=== PATIENT | female | born 1960 | race Caucasian/White ===

== ENCOUNTER 2019-02-10 19:47 | Emergency (ER) | payer OTHER ==
[~2019-02-10] VITALS: Ht 157.5 cm; Wt 63.5 kg
[~2019-02-10 19:47] MED LIST: ALBU90OI6 INH; ALPR.5 PO; ALPR1 PO; ARIP10 PO; AZIT250 PO; CETI10 PO; CLIN300 PO; CLON.1 PO; CLON1 PO; CODGUAEL PO; CYCL10 PO; DESV50 PO; DIAZ5 PO; DIPATR PO; DOXY100 PO; DULO60; DULO60 PO; FAMO20 PO; FLUO20 PO; HYDACE10 PO; HYDACE10B PO; HYDACE5 PO; HYDACE5325 PO; HYDHCL25 PO; KETO10 PO; LAMO100 PO; LEVSOD75 PO; LORA1 PO; NITR100CA PO; OMEP20ER PO; ONDA4 PO; PERM5TC TOP; PIRO20 PO; PROM25 PO; RXCLIN PO; RXHYDACE PO; SUCR1 PO; TOPI100; TRAM50 PO; VIBRYD PO
[2019-02-10] MEDS ORDERED: Ventolin/Prove6.7 GM INH (20:05)
[2019-02-10] MEDS ORDERED: INCRUSE ELLI62.5 MCG INH ×2 (20:05→21:33)
[2019-02-10 21:03] LABS: BASOPHILS ABSOLUTE AUTO 0.09 K/mm3 (0.00-0.23); BASOPHILS PERCENT AUTO 1 % (0-2); EOSINOPHILS ABSOLUTE AUTO 0.57 K/mm3 (0.00-0.68); EOSINOPHILS PERCENT AUTO 7 % (0-6); Hematocrit 42.6 % (33.0-51.0); Hemoglobin 14.4 g/dL (11.5-16.0); IMMATURE GRAN ABSOLUTE AUTO 0.02 K/mm3 (0.00-0.10); IMMATURE GRAN PERCENT AUTO 0 % (0-1); LYMPHOCYTES ABSOLUTE AUTO 2.64 K/mm3 (0.84-5.20); LYMPHOCYTES PERCENT AUTO 34 % (21-46); MONOCYTES ABSOLUTE AUTO 0.58 K/mm3 (0.16-1.47); MONOCYTES PERCENT AUTO 7 % (4-13); Mean Corpuscular HGB 30.4 pg (26.0-34.0); Mean Corpuscular HGB Conc 33.8 g/dL (31.5-36.5); Mean Corpuscular Volume 90 fL (80-100); NEUTROPHILS ABSOLUTE AUTO 3.92 K/mm3 (1.96-9.15); NEUTROPHILS PERCENT AUTO 50 % (41-73); Platelet Count 313 K/mm3 (150-400); RDW Coefficient Variation 12.8 % (11.7-14.2); RDW Standard Deviation 42.5 fL (35.1-46.3); Red Blood Cell Count 4.73 M/mm3 (3.80-5.20); White Blood Cell Count 7.82 K/mm3 (4.00-11.30)
[2019-02-10 21:24] LABS: Alanine Aminotransfer (ALT/SGP 22 U/L (12-78); Albumin, Blood 3.7 g/dL (3.4-5.0); Albumin/Globulin Ratio 0.8 (0.8-1.8); Alk Phos 111 U/L (50-136); Anion Gap 6 mmol/L (6-16); Aspartate Aminotrans (AST/SGOT 17 U/L (12-37); Bilirubin, Total 0.2 mg/dL (0.1-1.0); Blood Urea Nitrogen 22 mg/dL (8-24); Bun/Creatinine Ratio 30.2 (12.0-20.0); CO2, Blood 26 mmol/L (21-32); Calcium, Blood 8.8 mg/dL (8.5-10.1); Chloride, Blood 107 mmol/L (98-108); Creatinine, Blood 0.73 mg/dL (0.40-1.00); Globulin, Blood 4.4 g/dL (2.2-4.0); Glomerular Filtration Rate >60 (60-); Glucose, Blood 100 mg/dL (70-99); Potassium, Blood 4.5 mmol/L (3.5-5.5); Sodium, Blood 139 mmol/L (136-145); Total Protein, Blood 8.1 g/dL (6.4-8.2); Troponin I <0.015 ng/mL (0.000-0.040)
[2019-02-10] MEDS ORDERED: Prednisone20 MG PO (21:33)
== END 2019-02-10 21:40 | disposition home or self-care (01) ==
LOC: ER 19:47
PROVIDERS: Emergency Medicine
DX: J44.1 Chronic obstructive pulmonary disease with (acute) exacerbation (principal); F17.210 Nicotine dependence, cigarettes, uncomplicated; Z88.2 Allergy status to sulfonamides; Z88.8 Allergy status to other drugs, medicaments and biological substances; Z79.899 Other long term (current) drug therapy
CPT/HCPCS: 36415; 71045; 80053; 83880; 84484; 85025; 93005; 93010; 94640; 94644; 96374; 99285-25; J2930

== ENCOUNTER → 2019-09-06 | Outpatient (CLI) | payer OTHER ==
[~2019-09-06] MED LIST changes: +INCRUSE ELLI62.5 MCG INH; +Prednisone20 MG PO; +Ventolin/Prove6.7 GM INH
== END | disposition home or self-care (01) ==
LOC: LAB EV 19:06 → LAB SHORT 19:06
DX: N39.0 Urinary tract infection, site not specified (principal); Z20.9 Contact with and (suspected) exposure to unspecified communicable disease
CPT/HCPCS: 87077; 87086; 87147; 87186

== ENCOUNTER → 2021-11-22 | Outpatient (CLI) | payer OTHER ==
[~2021-11-22] MED LIST changes: +ALBU4 PO; +BUPRENORPHIN-N1 EAC1 SL; +Budeprion Xl300 MG PO; +DOCUZEN 8.6-501 EACH PO; +DOXE50 PO; +HYDPAM50 PO; +MAVYRET 100-401 EAC1 PO; +Ondansetron Odt8 MG MM; +PEPCID20 MG PO; +PREG75 PO; +PROM25; +Prevacid Soluta30 MG PO; +Prilosec Otc20 MG PO; +SUBOXONE 12 MG1 EACH SL; +VIIBRYD1 EAC2
[2021-11-23 15:08] LABS: HPV 16 Negative (Negative); HPV 18 Negative (Negative); HPV OTHER HR TYPES Negative (Negative)
== END | disposition home or self-care (01) ==
LOC: LAB SHORT 08:40 → LAB 08:40
PROVIDERS: Registered Nurse
DX: Z12.4 Encounter for screening for malignant neoplasm of cervix (principal)
CPT/HCPCS: 87624; G0123

== ENCOUNTER 2022-05-12 17:00 | Inpatient (IN) | payer OTHER ==
[~2022-05-12] VITALS: Ht 157.5 cm; Wt 65.8 kg
[2022-05-12 19:26] LABS: BASOPHILS ABSOLUTE AUTO 0.04 K/mm3 (0.00-0.23); BASOPHILS PERCENT AUTO 0 % (0-2); EOSINOPHILS PERCENT AUTO 1 % (0-6); Hematocrit 34.3 % (33.0-51.0); Hemoglobin 11.4 g/dL (11.5-16.0); IMMATURE GRAN ABSOLUTE AUTO 0.02 K/mm3 (0.00-0.10); IMMATURE GRAN PERCENT AUTO 0 % (0-1); LYMPHOCYTES ABSOLUTE AUTO 1.07 K/mm3 (0.84-5.20); LYMPHOCYTES PERCENT AUTO 11 % (21-46); MONOCYTES ABSOLUTE AUTO 0.48 K/mm3 (0.16-1.47); MONOCYTES PERCENT AUTO 5 % (4-13); Mean Corpuscular HGB 27.9 pg (26.0-34.0); Mean Corpuscular HGB Conc 33.2 g/dL (31.5-36.5); Mean Corpuscular Volume 84 fL (80-100); Mean Platelet Volume 11.2 fL (9.1-12.4); NEUTROPHILS ABSOLUTE AUTO 8.06 K/mm3 (1.96-9.15); NEUTROPHILS PERCENT AUTO 83 % (41-73); Platelet Count 205 K/mm3 (150-400); RDW Coefficient Variation 15.2 % (11.7-14.2); RDW Standard Deviation 46.9 fL (35.1-46.3); Red Blood Cell Count 4.08 M/mm3 (3.80-5.20); White Blood Cell Count 9.77 K/mm3 (4.00-11.30)
[2022-05-12 19:46] LABS: Albumin, Blood 3.4 g/dL (3.4-5.0); Albumin/Globulin Ratio 0.8 (0.8-1.8); Bilirubin, Total 0.2 mg/dL (0.1-1.0); Bun/Creatinine Ratio 19.4 (12.0-20.0); Calcium, Blood 8.3 mg/dL (8.5-10.1); Creatinine, Blood 0.72 mg/dL (0.40-1.00); Globulin, Blood 4.2 g/dL (2.2-4.0); Potassium, Blood 3.9 mmol/L (3.5-5.5); Total Protein, Blood 7.6 g/dL (6.4-8.2)
[2022-05-13 05:04] LABS: BASOPHILS ABSOLUTE AUTO 0.04 K/mm3 (0.00-0.23); BASOPHILS PERCENT AUTO 1 % (0-2); EOSINOPHILS ABSOLUTE AUTO 0.28 K/mm3 (0.00-0.68); EOSINOPHILS PERCENT AUTO 4 % (0-6); Hematocrit 32.7 % (33.0-51.0); Hemoglobin 10.9 g/dL (11.5-16.0); IMMATURE GRAN ABSOLUTE AUTO 0.02 K/mm3 (0.00-0.10); IMMATURE GRAN PERCENT AUTO 0 % (0-1); LYMPHOCYTES PERCENT AUTO 23 % (21-46); MONOCYTES ABSOLUTE AUTO 0.36 K/mm3 (0.16-1.47); MONOCYTES PERCENT AUTO 6 % (4-13); Mean Corpuscular HGB 28.1 pg (26.0-34.0); Mean Corpuscular HGB Conc 33.3 g/dL (31.5-36.5); Mean Corpuscular Volume 84 fL (80-100); Mean Platelet Volume 11.7 fL (9.1-12.4); NEUTROPHILS ABSOLUTE AUTO 4.35 K/mm3 (1.96-9.15); NEUTROPHILS PERCENT AUTO 66 % (41-73); Platelet Count 178 K/mm3 (150-400); RDW Coefficient Variation 15.4 % (11.7-14.2); RDW Standard Deviation 47.4 fL (35.1-46.3); Red Blood Cell Count 3.88 M/mm3 (3.80-5.20); White Blood Cell Count 6.55 K/mm3 (4.00-11.30)
[2022-05-13 05:24] LABS: Albumin/Globulin Ratio 0.8 (0.8-1.8); Bilirubin, Total 0.5 mg/dL (0.1-1.0); Calcium, Blood 8.3 mg/dL (8.5-10.1); Creatinine, Blood 0.62 mg/dL (0.40-1.00); Globulin, Blood 3.8 g/dL (2.2-4.0); Potassium, Blood 3.6 mmol/L (3.5-5.5); Total Protein, Blood 6.8 g/dL (6.4-8.2)
--- NOTE | 2022-05-13 06:23 | NUR ---
SHIFT SUMMARY PT ADMITTED FROM THE ER FOR A LEFT HIP FX, PT HAS BEEN COOPERATIVE WITH CARE, VSS, TEMP IS 101.1, DB&C ENC, TYLENOL GIVEN, PT IS ON RA, SPO2 >92%, NPO SINCE MIDNIGHT, 25 MCG IV FENTANYL GIVEN FOR PAIN, DENIES N/T TO L.LEG, VOIDING WNL, RESTING QUIETLY AT THIS TIME, ORTHO CONSULT CALLED TO , AZUL & REPORT TO DAY RN, CALL LIGHT IN REACH.
[2022-05-13 12:53] LABS: Appearance, Urine Clear (Clear); Bilirubin, Urine Neg (Neg); Blood, Urine Neg (Neg); Color, Urine Yellow (P-Yellow); Glucose Qualitative, Urine Neg (Neg); Ketones, Urine Neg (Neg); Leukocyte Esterase, Urine Neg (Neg); Nitrite, Urine Neg (Neg); Protein, Urine Neg (Neg); Urobilinogen, Urine NORM (Normal)
--- NOTE | 2022-05-13 15:42 | NUR ---
SHIFT SUMMARY: LEFT HIP FRACTURE PATIENT IS A&OX4. VS ARE WNL AND IS ON RA THOUGH HAS INTERMITTENT EXPIRATORY WHEEZES. PATIENT WILL REQUEST FOR RT TREATMENT APPROPRIATELY AND MANAGES THE WHEEZING. PAIN IS MANAGED WITH IV FENT. AND PO TYLENOL. SHE IS TOLERATING PO INTAKE. LEFT HIP IS SWOLLEN AND EXTERNALLY ROTATED BUT DENIES NUMBNESS AND TINGLING. CAN MOVE ALL EXTREMITIES WHEN ASKED. PEARSON IS PATENT AND DRAINING YELLOW URINE. CALLS APPROPRIATELY. CALL LIGHT WITHIN REACH. THE PLAN IS TO BE NPO AT MIDNIGHT TONIGHT AND HAVE SURGERY WITH DR. BURKETT TOMORROW.
--- NOTE | 2022-05-14 02:58 | NUR ---
ASSUMED CARE OF PT 0130. PT PREOP FOR AM- PT REPORTS HAS NOT HAD MENSES FOR 6-7 YRS. WILL NOT BE DOING U PREG TEST PREOP.
--- NOTE | 2022-05-14 10:20 | NUR ---
05/14/22 1020 Kimberly French PATIENT ARRIVED TO OR WITH PEARSON CATHETER IN PLACE DRAINING YELLOW URINE.
--- NOTE | 2022-05-14 18:45 | NUR ---
SHIFT SUMMARY S/P L GAMMA NAIL, AQUACEL CDI, PHYSICAL THERAPY EVAL'D. AMB SBA FWW & GB, UP TO CHAIR. PEARSON PATENT DRAINING YELLOW URINE. FRANKI PO. PAIN MANAGED WITH NORCO. WILL REPORT TO ONCOMING NOC RN.
[2022-05-15 05:07] LABS: Albumin, Blood 2.4 g/dL (3.4-5.0); Anion Gap 8 mmol/L (6-16); Blood Urea Nitrogen 16 mg/dL (8-24); Bun/Creatinine Ratio 33.8 (12.0-20.0); CO2, Blood 21 mmol/L (21-32); Calcium, Blood 7.7 mg/dL (8.5-10.1); Chloride, Blood 109 mmol/L (98-108); Creatinine, Blood 0.47 mg/dL (0.40-1.00); Glomerular Filtration Rate 109 (60-); Glucose, Blood 122 mg/dL (70-99); Phosphorus, Blood 2.9 mg/dL (2.5-4.9); Potassium, Blood 4.9 mmol/L (3.5-5.5); Sodium, Blood 138 mmol/L (136-145)
[2022-05-15 09:35] LABS: Hematocrit 31.6 % (33.0-51.0); Hemoglobin 10.6 g/dL (11.5-16.0); Mean Corpuscular HGB 28.6 pg (26.0-34.0); Mean Corpuscular HGB Conc 33.5 g/dL (31.5-36.5); Mean Corpuscular Volume 85 fL (80-100); Mean Platelet Volume 11.7 fL (9.1-12.4); Platelet Count 177 K/mm3 (150-400); RDW Coefficient Variation 15.2 % (11.7-14.2); White Blood Cell Count 9.35 K/mm3 (4.00-11.30)
--- NOTE | 2022-05-15 17:09 | NUR ---
SHIFT SUMMARY POD1 L GAMMA NAIL, AQUACEL DRESSING CHANGED TODAY. PAIN MANAGED WITH SUB, TYLENOL AND TORADOL. AMB SBA FWW & GB, TO BRP AND IN HALLWAY, UP TO CHAIR T/O SHIFT. VOIDING. FRANKI PO. DRESSED/ADLS SELF. SISTER AT BEDSIDE. WILL REPORT TO ONCOMING NOC RN.
[2022-05-16] MEDS ORDERED: Acetaminophen650 M1 PO (10:56)
[2022-05-16] MEDS ORDERED: ENOX40I SC (10:57)
[2022-05-16] MEDS ORDERED: MIRALAX17 GM PO (10:58)
[2022-05-16] MEDS ORDERED: IBUP400 PO (10:59)
--- NOTE | 2022-05-16 17:54 | NUR ---
SHIFT SUMMARY POD 2 GAMMA NAIL TO LEFT HIP, X1 AQUACEL IN PLACE, C/D/I. MINIMAL PAIN THROUGHOUT SHIFT, MANAGED PER EMAR. WORKED WITH THERAPY THIS SHIFT AND TOLERATED WELL. UP TO BATHROOM 1P SBA W/ FWW & GB. EATING, DRINKING, & VOIDING WELL. PATIENT WAS CLEARED TO DISCHARGE THIS AFTERNOON, ALTHOUGH PATIENT VOICED CONCERNS AND REPORTED SHE WOULD FEEL MORE COMFORTABLE DISCHARGING IN THE AM. CALLS APPROPRIATELY, IN REACH. WILL REPORT TO ONCOMING RN AT 1900.
--- NOTE | 2022-05-17 05:45 | NUR ---
SUMMARY PT HAS NO NEW ISSUES. PT HAS BEEN SLEEPING THROUGHOUT SHIFT. PT DENIES PAIN OR DISCOMFORT. PT CURRENTLY SLEEPING IN NO DISTRESS. CALL LIGHT IN REACH.
[2022-05-17] MEDS ORDERED: PROM25 PO (11:56)
[2022-05-17] MEDS ORDERED: Budeprion Xl300 MG PO (11:56)
--- NOTE | 2022-05-17 13:23 | NUR ---
DISCHARGE PATIENT CLEARED THERAPY FOR DISCHARGE HOME WITH HOME HEALTH. PAIN MANAGED PER EMAR. X2 AQUACELS TO LEFT HIP, CHANGED AT DISCHARGE, C/D/I. EATING, DRINKING, & VOIDING WELL. AMBULATING WELL W/ FWW & GB. DISCUSSED DISCHARGE INSTRUCTIONS & SENT WITH PATIENT. SENT AQACEL DRESSING ALSO. PICKED UP BY [facility] TO TRANSPORT HOME.
== END 2022-05-17 13:15 | disposition home or self-care (01) | DRG 482 ==
LOC: ER 17:00 → SURS 19:26
PROVIDERS: Internal Medicine; Orthopaedic Surgery; Student in an Organized Health Care Education/Training Program; ADMIT Internal Medicine
PROC: 3E02340 Introduction of Influenza Vaccine into Muscle, Percutaneous Approach (ICD-10-PCS; 2022-05-12)
PROC: 0QS736Z Reposition Left Upper Femur with Intramedullary Internal Fixation Device, Percutaneous Approach (ICD-10-PCS; principal; 2022-05-14 08:30)
DX: S72.142A Displaced intertrochanteric fracture of left femur, initial encounter for closed fracture (principal); J44.9 Chronic obstructive pulmonary disease, unspecified; G89.4 Chronic pain syndrome; G62.9 Polyneuropathy, unspecified; S60.212A Contusion of left wrist, initial encounter; M79.7 Fibromyalgia; E03.9 Hypothyroidism, unspecified; F32.A Depression, unspecified; B19.20 Unspecified viral hepatitis C without hepatic coma; M51.9 Unspecified thoracic, thoracolumbar and lumbosacral intervertebral disc disorder; F17.210 Nicotine dependence, cigarettes, uncomplicated; M25.532 Pain in left wrist; F19.10 Other psychoactive substance abuse, uncomplicated; W01.0XXA Fall on same level from slipping, tripping and stumbling without subsequent striking against object, initial encounter; Z23 Encounter for immunization; Z90.49 Acquired absence of other specified parts of digestive tract; Z88.2 Allergy status to sulfonamides; Z98.890 Other specified postprocedural states; Z88.8 Allergy status to other drugs, medicaments and biological substances; Z79.899 Other long term (current) drug therapy; Z79.51 Long term (current) use of inhaled steroids
CPT/HCPCS: 36415; 70450; 71046; 72125; 73110; 73502; 80053; 80069; 81003; 83880; 85025; 85027; 90686; 93005; 93010; 94640; 94664; 94760; 97110; 97116; 97161; 97530; A9270; C1713; C1769; J0690; J1100; J1650; J1885; J2250; J2405; J2704; J3010; J7030

== ENCOUNTER 2023-04-20 12:37 | Inpatient (IN) | payer OTHER ==
[~2023-04-20] VITALS: Ht 157.5 cm; Wt 68.0 kg
[~2023-04-20 12:37] MED LIST changes: -ALBU4 PO; +ALBU90OI INH; +Acetaminophen650 M1 PO; +ENOX40I SC; +IBUP400 PO; +MIRALAX17 GM PO
[2023-04-20 13:21] LABS: BASOPHILS PERCENT AUTO 1 % (0-2); EOSINOPHILS ABSOLUTE AUTO 0.12 K/mm3 (0.00-0.68); EOSINOPHILS PERCENT AUTO 1 % (0-6); Hematocrit 30.8 % (33.0-51.0); Hemoglobin 9.8 g/dL (11.5-16.0); IMMATURE GRAN ABSOLUTE AUTO 0.08 K/mm3 (0.00-0.10); IMMATURE GRAN PERCENT AUTO 1 % (0-1); LYMPHOCYTES ABSOLUTE AUTO 1.12 K/mm3 (0.84-5.20); LYMPHOCYTES PERCENT AUTO 7 % (21-46); MONOCYTES ABSOLUTE AUTO 0.82 K/mm3 (0.16-1.47); MONOCYTES PERCENT AUTO 5 % (4-13); Mean Corpuscular HGB 24.8 pg (26.0-34.0); Mean Corpuscular HGB Conc 31.8 g/dL (31.5-36.5); Mean Corpuscular Volume 78 fL (80-100); Mean Platelet Volume 9.5 fL (9.1-12.4); NEUTROPHILS ABSOLUTE AUTO 14.13 K/mm3 (1.96-9.15); NEUTROPHILS PERCENT AUTO 86 % (41-73); Platelet Count 512 K/mm3 (150-400); RDW Coefficient Variation 15.6 % (11.7-14.2); RDW Standard Deviation 43.9 fL (35.1-46.3); Red Blood Cell Count 3.95 M/mm3 (3.80-5.20); White Blood Cell Count 16.37 K/mm3 (4.00-11.30)
[2023-04-20 13:43] LABS: Albumin, Blood 3.3 g/dL (3.4-5.0); Albumin/Globulin Ratio 0.7 (0.8-1.8); Bilirubin, Total 0.3 mg/dL (0.1-1.0); Bun/Creatinine Ratio 13.5 (12.0-20.0); Calcium, Blood 9.1 mg/dL (8.5-10.1); Creatinine, Blood 0.74 mg/dL (0.40-1.00); Potassium, Blood 3.9 mmol/L (3.5-5.5); Total Protein, Blood 8.3 g/dL (6.4-8.2)
[2023-04-20 17:46] LABS: Base Excess Venous -0.5 mmol/L; Bicarbonate Venous 24.1 mmol/L (24.0-30.0); PCO2 Venous 37.7 mmHg (38-42); pH Blood Venous 7.41 (7.34-7.37)
[2023-04-20] MEDS ORDERED: PREG150 PO (19:58)
[2023-04-20] MEDS ORDERED: DOXE50 PO ×2 (20:00→20:01)
[2023-04-20] MEDS ORDERED: PANT40 PO (20:02)
[2023-04-20 20:35] VITALS: BP 116/82
[2023-04-21 03:46] VITALS: BP 118/84
[2023-04-21 04:47] LABS: U Amphetamine Screen Not Detected; U Barbituate Screen Not Detected; U Benzodiazapine Screen Not Detected; U Buprenorphine Screen DETECTED; U Methamphetamine Screen Not Detected; U Oxycodone Screen Not Detected; U Propoxyphene Screen Not Detected
[2023-04-21 04:48] LABS: U Cannabinoids Screen Not Detected; U Cocaine Screen Not Detected; U Methadone Screen Not Detected; U Opiates Screen Not Detected; U Phencyclidine Screen Not Detected
--- NOTE | 2023-04-21 05:17 | NUR ---
SUMMARY PT ARRIVED TO ROOM IN NO DISTRESS. PT HAS BEEN LETHARGIC AND SOMNOLENT. PT EASILY AROUSABLE. PT DENIES ANY CX PAIN OR SOB. PT HAS BEEN SLEEPING WITHOUT ISSUE FOR MOST OF THE NIGHT. PT CURRENTLY SLEEPING IN NO DISTRESS. CALL LIGHT IN REACH. BED ALARM ON.
[2023-04-21 05:57] LABS: BASOPHILS ABSOLUTE AUTO 0.06 K/mm3 (0.00-0.23); BASOPHILS PERCENT AUTO 1 % (0-2); EOSINOPHILS ABSOLUTE AUTO 0.01 K/mm3 (0.00-0.68); EOSINOPHILS PERCENT AUTO 0 % (0-6); Hematocrit 31.6 % (33.0-51.0); Hemoglobin 9.9 g/dL (11.5-16.0); IMMATURE GRAN ABSOLUTE AUTO 0.04 K/mm3 (0.00-0.10); IMMATURE GRAN PERCENT AUTO 0 % (0-1); LYMPHOCYTES ABSOLUTE AUTO 1.34 K/mm3 (0.84-5.20); LYMPHOCYTES PERCENT AUTO 12 % (21-46); MONOCYTES ABSOLUTE AUTO 0.69 K/mm3 (0.16-1.47); MONOCYTES PERCENT AUTO 6 % (4-13); Mean Corpuscular HGB 24.9 pg (26.0-34.0); Mean Corpuscular HGB Conc 31.3 g/dL (31.5-36.5); Mean Corpuscular Volume 79 fL (80-100); NEUTROPHILS ABSOLUTE AUTO 8.97 K/mm3 (1.96-9.15); NEUTROPHILS PERCENT AUTO 81 % (41-73); Platelet Count 480 K/mm3 (150-400); RDW Coefficient Variation 15.8 % (11.7-14.2); RDW Standard Deviation 45.2 fL (35.1-46.3); Red Blood Cell Count 3.98 M/mm3 (3.80-5.20); White Blood Cell Count 11.11 K/mm3 (4.00-11.30)
[2023-04-21 06:47] LABS: Bun/Creatinine Ratio 17.7 (12.0-20.0); Calcium, Blood 8.7 mg/dL (8.5-10.1); Creatinine, Blood 0.62 mg/dL (0.40-1.00); Potassium, Blood 4.1 mmol/L (3.5-5.5)
[2023-04-21 08:05] VITALS: BP 104/76
[2023-04-21 11:47] LABS: Adenovirus Not Detected (NOT DETECT); Coronavirus 229E Not Detected (NOT DETECT); Coronavirus HKU1 Not Detected (NOT DETECT); Coronavirus NL63 Not Detected (NOT DETECT); Coronavirus OC43 Not Detected (NOT DETECT)
[2023-04-21 11:48] LABS: Bordetella pertussis Not Detected (NOT DETECT); Chlamydophila pneumoniae Not Detected (NOT DETECT); Human Metapneumovirus Not Detected (NOT DETECT); Human Rhinovirus/Enterovirus Not Detected (NOT DETECT); Influenza A/2009-H1 Not Detected (NOT DETECT); Influenza A/H1 Not Detected (NOT DETECT); Influenza A/H3 Not Detected (NOT DETECT); Influenza B Not Detected (NOT DETECT); Mycoplasma pneumoniae Not Detected (NOT DETECT); Parainfluenza Virus 1 Not Detected (NOT DETECT); Parainfluenza Virus 2 Not Detected (NOT DETECT); Parainfluenza Virus 3 Not Detected (NOT DETECT); Parainfluenza Virus 4 Not Detected (NOT DETECT); Respiratory Syncytial Virus Not Detected (NOT DETECT); SARS-Cov-2 (COVID-19), BioFire Not Detected (NOT DETECT)
[2023-04-21 12:29] LABS: Acinetobacter baumannii DNA Not Detected copy/mL (NOT DETECT); Enterobacter cloacae DNA Not Detected copy/mL (NOT DETECT); Escherichia coli DNA Detected Bin >=10^7 copy/mL (NOT DETECT); Haemophilus influenzae DNA Not Detected copy/mL (NOT DETECT); Klebsiella aerogenes DNA Not Detected copy/mL (NOT DETECT); Klebsiella oxytoca DNA Not Detected copy/mL (NOT DETECT); Klebsiella pneumoniae DNA Detected Bin >=10^7 copy/mL (NOT DETECT); Moraxella catarrhalis DNA Not Detected copy/mL (NOT DETECT); Proteus sp DNA Not Detected copy/mL (NOT DETECT); Pseudomonas aeruginosa DNA Not Detected copy/mL (NOT DETECT); Serratia marcescens DNA Not Detected copy/mL (NOT DETECT)
[2023-04-21 12:32] LABS: Staphylococcus aureus DNA Detected Bin 10^4 copy/mL (NOT DETECT)
[2023-04-21 12:35] LABS: CTX-M Resistance Gene Not Detected; Chlamydia pneumonia Not Detected (NOT DETECT); IMP Resistance Gene Not Detected; KPC Resistance Gene Not Detected; Legionella pneumophila Not Detected (NOT DETECT); Mycoplasma pneumoniae Not Detected (NOT DETECT); NDM Resistance Gene Not Detected; OXA-48-like Resistance Gene Not Detected; Streptococcus agalactiae DNA Not Detected copy/mL (NOT DETECT); Streptococcus pneumoniae DNA Not Detected copy/mL (NOT DETECT); Streptococcus pyogenes DNA Not Detected copy/mL (NOT DETECT); VIM Resistance Gene Not Detected; mecA/C and MREJ Resist Gene Detected
[2023-04-21 12:36] LABS: Adenovirus DNA Not Detected (NOT DETECT); Human Coronavirus RNA Not Detected (NOT DETECT); Human Metapneumovirus RNA Not Detected (NOT DETECT); Influenza virus A RNA Not Detected (NOT DETECT); Influenza virus B RNA Not Detected (NOT DETECT); Parainfluenza virus RNA Not Detected (NOT DETECT); Respiratory syncytial Vir RNA Not Detected (NOT DETECT); Rhinovirus+Enterovirus RNA Not Detected (NOT DETECT)
[2023-04-21] MEDS ORDERED: BREYNA 160-4.10.3 GM INH (12:41)
[2023-04-21 12:48] LABS: Percent Saturation 7.1 % (15.0-50.0)
[2023-04-21] MEDS ORDERED: SUBOXONE 8 MG-1 EACH SL (14:30)
[2023-04-21] MEDS ORDERED: AUVELITY ER 451 EACH PO (14:39)
[2023-04-21 15:17] VITALS: BP 125/79
--- NOTE | 2023-04-21 16:24 | NUR ---
SHIFT SUMMARY NO ACUTE CHANGES THIS SHIFT. PT IS ON 3L NC. SOB WITH EXERTION. INDEPENDENT IN THE ROOM. TELE NS. PT IS ABLE TO MAKE NEEDS KNOWN. BED IS IN THE LOWEST POSITION CALL LIGHT IN REACH.
[2023-04-21 20:12] VITALS: BP 113/79
--- NOTE | 2023-04-22 04:07 | NUR ---
SHIFT SUMMARY PATIENT A/Ox4, NO COMPLAINTS VERBALIZED, APPEARES CALM/PLEASANT AND COOPERATIVE. IS INDEPENDANT IN ROOM. NO COUGH, DENIES SOB/DIFFICULTY BREATHING AT TIME OF ASSESSMENT. NO ACUTE CHANGES NOTED OVERNIGHT. BED LOCKED AND IN LOWEST POSITION, CALL LIGHT WITHIN REACH.
[2023-04-22 05:32] VITALS: BP 135/89
[2023-04-22 07:47] VITALS: BP 120/89
[2023-04-22] MEDS ORDERED: FERSU300 PO (13:17)
[2023-04-22] MEDS ORDERED: PRED20 PO (13:18)
[2023-04-22] MEDS ORDERED: DOXY100 PO (13:19)
[2023-04-22] MEDS ORDERED: VISBIOME 112.51 EACH PO (13:19)
[2023-04-22] MEDS ORDERED: AIRDUO RESPICL1 EAC1 INH (13:22)
[2023-04-22] MEDS ORDERED: AZIT500 PO (13:25)
--- NOTE | 2023-04-22 15:04 | NUR ---
DISCHARGE NOTE: PATIENT CALLED HER SISTER TO HAVE HER COME GET HER FROM THE HOSPITAL. PATIENT COLLECTED HER BELONGINGS ACKNOWLEGDED UNDERSTANDING OF DISCHARGE PLAN. IV AND TELEMETRY D/C'D. OFFERED TO HAVE PATIENT WHEELED OUT OF HOSPITAL; SHE DENIED AND STATED SHE WILL WALK AND MEET HER SISTER AT THE EMERGENCY ENTRANCE. MASK PROVIDED FOR THE PATIENT WHEN EXITED ROOM. NO SIGNS OR SYMPTOMS OF DISTRESS.
== END 2023-04-22 14:54 | disposition home or self-care (01) | DRG 871 ==
LOC: ER 12:37 → MEDS 18:03
PROVIDERS: Student in an Organized Health Care Education/Training Program; ADMIT Internal Medicine
DX: A41.51 Sepsis due to Escherichia coli [E. coli] (principal); G92.8 Other toxic encephalopathy; J18.9 Pneumonia, unspecified organism; J96.01 Acute respiratory failure with hypoxia; J44.0 Chronic obstructive pulmonary disease with (acute) lower respiratory infection; J44.1 Chronic obstructive pulmonary disease with (acute) exacerbation; G89.4 Chronic pain syndrome; M51.36 Other intervertebral disc degeneration, lumbar region; M79.7 Fibromyalgia; E03.9 Hypothyroidism, unspecified; F17.210 Nicotine dependence, cigarettes, uncomplicated; B96.1 Klebsiella pneumoniae [K. pneumoniae] as the cause of diseases classified elsewhere; F32.A Depression, unspecified; D64.9 Anemia, unspecified; Z88.8 Allergy status to other drugs, medicaments and biological substances; Z88.2 Allergy status to sulfonamides; Z79.899 Other long term (current) drug therapy; Z79.52 Long term (current) use of systemic steroids; Z86.19 Personal history of other infectious and parasitic diseases; Z90.49 Acquired absence of other specified parts of digestive tract; Z98.890 Other specified postprocedural states; Z11.52 Encounter for screening for COVID-19
CPT/HCPCS: 0202U; 36415; 71045; 80048; 80053; 82728; 82803; 83540; 83550; 83605; 83880; 84484; 85025; 87040; 87633; 93005; 93010; 94640; 94664; 94760; 99284-25; A9270; J0456; J0696; J1650; J1940; J7030; J7050; J7512

== ENCOUNTER → 2023-08-02 | Outpatient (CLI) | payer OTHER ==
[~2023-08-02] MED LIST changes: +AIRDUO RESPICL1 EAC1 INH; +AUVELITY ER 451 EACH PO; +AZIT500 PO; +BREYNA 160-4.10.3 GM INH; +FERSU300 PO; +PANT40 PO; +PRED20 PO; +PREG150 PO; +SUBOXONE 8 MG-1 EACH SL; +VISBIOME 112.51 EACH PO
== END | disposition home or self-care (01) ==
LOC: LAB 07:45 → LAB SHORT 07:45
DX: J18.9 Pneumonia, unspecified organism (principal); J98.9 Respiratory disorder, unspecified
CPT/HCPCS: 87070; 87077; 87186; 87205